=== PATIENT | female | born 1970 | race Caucasian/White ===

== ENCOUNTER 2020-08-06 21:54 | Emergency (ER) | payer SELFPAY | END 2020-08-06 23:03 | disposition home or self-care (01) | LOC: MADERS 21:54 | DX: S93.402A Sprain of unspecified ligament of left ankle, initial encounter (principal); E03.9 Hypothyroidism, unspecified; I10 Essential (primary) hypertension; F17.210 Nicotine dependence, cigarettes, uncomplicated; Z85.850 Personal history of malignant neoplasm of thyroid; W01.0XXA Fall on same level from slipping, tripping and stumbling without subsequent striking against object, initial encounter ==

== ENCOUNTER 2020-10-24 23:21 | Emergency (ER) | payer SELFPAY ==
[2020-10-24] MEDS ORDERED: Ibuprofen 600 MG TAB ONE ×2 (23:38→23:45)
[2020-10-24] MEDS ORDERED: Cyclobenzaprine 10 MG TAB ONE ×2 (23:38→23:45)
[2020-10-24] MEDS ORDERED: HYDROcodone/Acetaminophen 5/325 mg Tablet ONE ×2 (23:38→23:45)
== END 2020-10-24 23:54 | disposition home or self-care (01) ==
LOC: MADERS 23:21
DX: M79.18 Myalgia, other site (principal); E03.9 Hypothyroidism, unspecified; I10 Essential (primary) hypertension; F17.210 Nicotine dependence, cigarettes, uncomplicated
CPT/HCPCS: 99283